=== PATIENT | female | born 1965 | race Caucasian/White ===

== ENCOUNTER → 2019-10-29 | Outpatient (CLI) | payer OTHER ==
--- NOTE | 2019-10-29 08:33 | US ---
EXAMINATION TYPE: US abdomen complete DATE OF EXAM: 10/29/2019 COMPARISON: NONE CLINICAL HISTORY: R10.84 Abdominal pain. unplanned weight loss since March, abd pain since fall, carbo hydrates and sugar upset abd, cholecystectomy EXAM MEASUREMENTS: Liver Length: 15.1 cm Gallbladder Wall: N/A CBD: 0.4 cm Spleen: 9.4 cm Right Kidney: 10.3 x 4.7 x 4.5 cm Left Kidney: 10.3 x 5.0 x 5.3 cm Pancreas: wnl Liver: wnl Gallbladder: Surgically absent Evidence for sonographic Collins's sign: no CBD: wnl Spleen: wnl Right Kidney: wnl Left Kidney: wnl Upper IVC: wnl Abd Aorta: wnl The liver is homogenous. The intrahepatic portion of the IVC and proximal abdominal aorta are within normal limits. There is no evidence of cholelithiasis. Common bile duct is unremarkable. The visu alized portions of the pancreas are homogenous. The spleen is unremarkable. Kidneys are symmetric a nd free of hydronephrosis. No renal lesions are seen. IMPRESSION: Unremarkable pelvic ultrasound.
--- NOTE | 2019-10-29 08:34 | US ---
EXAMINATION TYPE: US pelvic limited DATE OF EXAM: 10/29/2019 COMPARISON: NONE CLINICAL HISTORY: R10.84 Abdominal pain. unplanned weight loss since March, pain during recent physica l exam, total hysterectomy TECHNIQUE: TA. Transabdominal sonographic images of the pelvis were acquired. Date of LMP: hysterectomy EXAM MEASUREMENTS: Uterus: Surgically absent Endometrial Stripe: Surgically absent Right Ovary: Surgically absent Left Ovary: Surgically absent 1. Uterus: Surgically absent 2. Endometrium: Surgically absent 3. Right Ovary: Surgically absent 4. Left Ovary: Surgically absent 5. Bilateral Adnexa: wnl 6. Posterior cul-de-sac: wnl IMPRESSION: Surgical absence of the ovaries and uterus. Otherwise unremarkable ultrasound of the pelv is.
== END | disposition home or self-care (01) ==
LOC: RADUSWWP 07:26
PROVIDERS: ATTEND Family Medicine
DX: R10.84 Generalized abdominal pain (principal); Z90.722 Acquired absence of ovaries, bilateral; Z90.710 Acquired absence of both cervix and uterus
CPT/HCPCS: 76700; 76857